=== PATIENT | male | born 2000 | race Caucasian/White ===

== ENCOUNTER → 2022-02-11 | Outpatient (CLI) | payer OTHER | LOC: COL.RAD 10:30 | DX: R35.89 Other polyuria (principal); E87.6 Hypokalemia; R79.89 Other specified abnormal findings of blood chemistry | CPT/HCPCS: Q9967 ==

== ENCOUNTER → 2022-02-16 | Outpatient (CLI) | payer OTHER ==
[2022-02-16 12:46] LABS: CREATININE, serum 1.52 mg/dL (0.72-1.25)
[2022-02-16 13:58] LABS: PROTEIN, TOTAL URINE random <7 mg/dL
[2022-02-16 14:11] LABS: URINE TOTAL VOLUME - 24 HRS 5975 mL/24 hr
== END ==
LOC: COL.LAB 11:55
PROVIDERS: Internal Medicine Nephrology
DX: R79.89 Other specified abnormal findings of blood chemistry (principal)